=== PATIENT | female | born 1975 | race Two or more races ===

== ENCOUNTER 2022-07-19 03:03 | Emergency (ER) | payer OTHER ==
[~2022-07-19] VITALS: Ht 152.4 cm; Wt 63.6 kg
[2022-07-19] MEDS ORDERED: PredniSONE 20 MG TABLET PO ONE (03:15)
[2022-07-19] MEDS ORDERED: SODIUM CHLORIDE 0.9% 1,000 ML IV ONE (03:15)
[2022-07-19] MEDS ORDERED: DiphenhydrAMINE HCL 50 MG/ML VIAL IVP ONE (03:15)
[2022-07-19 03:24] LABS: BASOPHILS % (AUTO) 0.4 % (0.0-2.0); EOSINOPHILS % (AUTO) 1.9 % (1.0-6.0); HEMATOCRIT 35.2 % (36-46); HEMOGLOBIN 11.7 g/dL (12.0-16.0); MEAN CORPUSCULAR HEMOGLOBIN 27.1 pg (26.0-34.0); MEAN CORPUSCULAR HGB CONC 33.2 G/dL (31.0-37.0); MEAN CORPUSCULAR VOLUME 82 fL (80-100); MONOCYTES # (AUTO) 0.1 K/uL (0.1-1.0); MONOCYTES % (AUTO) 1.9 % (2.0-9.0); NEUTROPHILS # (AUTO) 2.4 K/uL (1.8-7.7); NEUTROPHILS % (AUTO) 35.6 % (40.0-70.0); PLATELET COUNT (AUTO) 283 K/uL (150-450); RED BLOOD CELL COUNT(AUTO) 4.32 MIL/uL (4.00-5.20); RED CELL DISTRIBUTION WIDTH 13.2 % (11.5-14.5)
[2022-07-19] MEDS ORDERED: DiphenhydrAMINE HCL 25 MG CAPSULE PO ONE (03:30)
[2022-07-19] MEDS ORDERED: CETI-193 PO (03:33)
[2022-07-19 03:34] LABS: ANION GAP 10 mmol/L (8-16); CALCIUM, TOTAL 9.3 mg/dL (8.8-10.5); CARBON DIOXIDE 25 mmol/L (22-29); CHLORIDE 104 mmol/L (98-107); CREATININE 0.89 mg/dL (0.60-1.30); GLUCOSE,RANDOM 147 mg/dL (70-110); POTASSIUM 3.2 mmol/L (3.5-5.1); SODIUM SERUM 139 mmol/L (136-145); UREA NITROGEN, BLOOD 17 mg/dL (7-18)
[2022-07-19] MEDS ORDERED: MONT-35 PO (03:34)
[2022-07-19 03:35] LABS: GLOMERULAR FILTR. RATE CALC > 60 mL/min (>60)
[2022-07-19 03:37] LABS: ALANINE AMINOTRANSFERASE 30 U/L (12-78); ALBUMIN 3.3 g/dL (3.4-5.0); ALKALINE PHOSPHATASE 78 U/L (46-116); ASPARTATE AMINOTRANSFERASE 27 U/L (15-37); BILIRUBIN,TOTAL 0.4 mg/dL (0.1-1.0); TOTAL PROTEIN, SERUM 6.8 g/dL (6.4-8.2)
[2022-07-19 03:42] LABS: LYMPHOCYTES % (AUTO) 60.2 % (22.0-44.0)
[2022-07-19] MEDS ORDERED: PRED-554 PO (04:18)
[2022-07-19] MEDS ORDERED: EPIN0.3P3 IM (04:18)
[2022-07-19 05:04] VITALS: BP 122/70
== END 2022-07-19 05:06 | disposition left against medical advice (07) ==
LOC: EMS 03:03
DX: T78.1XXA Other adverse food reactions, not elsewhere classified, initial encounter (principal); J45.909 Unspecified asthma, uncomplicated; Z98.890 Other specified postprocedural states; Z91.013 Allergy to seafood; X58.XXXA Exposure to other specified factors, initial encounter
CPT/HCPCS: 99283; 80053; 84703; 85025; 36415; J7512; J7030; J1200